=== PATIENT | female | born 1980 | race Caucasian/White ===

== ENCOUNTER 2023-03-12 20:39 | Inpatient (IN) | payer OTHER ==
--- NOTE | 2023-03-12 21:31 | ED ---
Psych HPI - General Source: EMS, RN notes reviewed, old records reviewed Mode of arrival: EMS Limitations: no limitations - History of Present Illness MD Complaint: altered mental status -: unknown Associated Psychiatric Symptoms: racing thoughts, visual hallucinations, delusions Quality: constant, getting worse Improves With: none Worsens With: none Associated Symptoms: denies other symptoms <Salty Mcdermott - Last Filed: 03/12/23 23:20> <Cain Saenz - Last Filed: 03/13/23 02:30> - General Chief Complaint: Psychiatric Symptoms Stated Complaint: Mental Health Time Seen by Provider: 03/12/23 21:07 - History of Present Illness Initial Comments: This is a 42-year-old female to the ER today for evaluation of altered mental status. Patient is not acting appropriately per family states she's been sleeping in bed for 2-3 days and was altered on evaluation today. Patient has relatively no complaints is a poor strain is a patient here in the emergency department (Salty Mcdermott) - Related Data Home Medications Medication Instructions Recorded Confirmed Dextromethorphan HBr/Bupropion 1 tab PO BID 03/12/23 03/12/23 [Auvelity ER 45-105 mg Tablet] hydrOXYzine pamoate [Vistaril] 50 mg PO HS 03/12/23 03/12/23 Allergies Allergy/AdvReac Type Severity Reaction Status Date / Time No Known Allergies Allergy Unverified 03/12/23 22:46 Review of Systems ROS Other: All systems not noted in ROS Statement are negative. <Salty Mcdermott - Last Filed: 03/12/23 23:20> ROS Other: All systems not noted in ROS Statement are negative. <Cain Saenz - Last Filed: 03/13/23 02:30> ROS Statement: Those systems with pertinent positive or pertinent negative responses have been documented in the HPI. Past Medical History Past Medical History: Cancer Smoking Status: Unknown if ever smoked Past Alcohol Use History: Unable to Obtain Past Drug Use History: Unable to Obtain <Salty Mcdermott - Last Filed: 03/12/23 23:20> General Exam General appearance: alert, in no apparent distress Head exam: Present: atraumatic, normocephalic, normal inspection Eye exam: Present: normal appearance, PERRL, EOMI. Absent: scleral icterus, conjunctival injection, periorbital swelling ENT exam: Present: normal exam, mucous membranes moist Neck exam: Present: normal inspection. Absent: tenderness, meningismus, lymphadenopathy Respiratory exam: Present: normal lung sounds bilaterally. Absent: respiratory distress, wheezes, rales, rhonchi, stridor Cardiovascular Exam: Present: regular rate, normal rhythm, normal heart sounds. Absent: systolic murmur, diastolic murmur, rubs, gallop, clicks GI/Abdominal exam: Present: soft, normal bowel sounds. Absent: distended, tenderness, guarding, rebound, rigid Extremities exam: Present: normal inspection, full ROM, normal capillary refill. Absent: tenderness, pedal edema, joint swelling, calf tenderness Back exam: Present: normal inspection Neurological exam: Present: alert, oriented X3, CN II-XII intact Psychiatric exam: Present: normal affect, normal mood Skin exam: Present: warm, dry, intact, normal color. Absent: rash <Salty Mcdermott - Last Filed: 03/12/23 23:20> Course <Salty Mcdermott - Last Filed: 03/12/23 23:20> Vital Signs 03/12/23 03/12/23 03/13/23 20:44 22:10 01:00 Temperature 99.5 F Pulse Rate 115 H 110 H 91 Respiratory 18 16 Rate Blood Pressure 129/107 121/91 110/80 O2 Sat by Pulse 96 97 98 Oximetry - Reevaluation(s) Reevaluation #1: 03/12/23 23:19 Record is reviewed (Salty Mcdermott) Reevaluation #4: 03/12/23 23:20 Was pt. sent in by a medical professional or institution (, PA, CIVIL RIGHTS ATTORNEY, urgent care, hospital, or longterm...) When possible be specific @ -no Did you speak to anyone other than the patient for history (EMS, parent, family, police, friend...)? What history was obtained from this source @ -no Did you review nursing and triage notes (agree or disagree)? Why? @ -agree Are old charts reviewed (outside hosp., previous admission, EMS record, old EKG, old radiological studies, urgent care reports/EKG's, longterm records)? Report findings @ -yes Differential Diagnosis (chest pain, altered mental status, abdominal pain women, abdominal pain men, vaginal bleeding, weakness, fever, dyspnea, syncope, headache, dizziness, GI bleed, back pain, seizure, CVA, palpatations, mental health, musculoskeletal)? @ -prior EKG interpreted by me (3pts min.). @ -yes X-rays interpreted by me (1pt min.). @ -yes CT interpreted by me (1pt min.). @ -no U/S interpreted by me (1pt. min.). @ -no What testing was considered but not performed or refused? (CT, X-rays, U/S, labs)? Why? @ -none What meds were considered but not given or refused? Why? @ -none Did you discuss the management of the patient with other professionals (professionals i.e. , PA, CIVIL RIGHTS ATTORNEY, lab, RT, psych nurse, medical social worker, reel system operator, teacher, air support control officer, embedded case manager)? Give summary @ -no Was smoking cessation discussed for >3mins.? @ -no Was critical care preformed (if so, how long)? @ -no Were there social determinants of health that impacted care today? How? (Homelessness, low income, unemployed, alcoholism, drug addiction, transportation, low edu. Level, literacy, decrease access to med. care, usp, rehab)? @ -none Was there de-escalation of care discussed even if they declined (Discuss DNR or withdrawal of care, Hospice)? DNR status @ -no What co-morbidities impacted this encounter? (DM, HTN, Smoking, COPD, CAD, Cancer, CVA, ARF, Chemo, Hep., AIDS, mental health diagnosis, sleep apnea, morbid obesity)? @ -none Was patient admitted / discharged? Hospital course, mention meds given and route, prescriptions, significant lab abnormalities, going to OR and other pertinent info. @ - Undiagnosed new problem with uncertain prognosis? @ -no Drug Therapy requiring intensive monitoring for toxicity (Heparin, Nitro, Insulin, Cardizem)? @ -no Were any procedures done? @ -no Diagnosis/symptom? @ - Acute, or Chronic, or Acute on Chronic? @ -Acute Uncomplicated (without systemic symptoms) or Complicated (systemic symptoms)? @ -Complicated Side effects of treatment? @ -no Exacerbation, Progression, or Severe Exacerbation? @ -exacerbation Poses a threat to life or bodily function? How? (Chest pain, [place], [place], pneumonia, PE, COPD, DKA, ARF, appy, cholecystitis, CVA, Diverticulitis, Homicidal, Suicidal, threat to staff... and all critical care pts) @ -yes (Salty Mcdermott) Reevaluation #5: 03/12/23 23:20 Differential Altered Mental Status: Hypoglycemia, DKA, hypercapnia, ETOH, overdose, CO poisoning, trauma, myxedema coma, HTN encephalopathy, infection, encephalitis, psychosis, intercranial hemorrhage, hepatic encephalopathy, meningitis, CVA, this is not meant to be an all-inclusive list (Salty Mcdermott) Medical Decision Making - Lab Data Result diagrams: 03/12/23 22:52 03/12/23 22:52 - EKG Data -: EKG Interpreted by Me <Cain Saenz - Last Filed: 03/13/23 02:30> - Medical Decision Making Patient signed out to me pending results of workup. Presents with family over concern for altered mental status, lack of appetite, concern for dehydration. Has a psychiatric history and unknown if it is related to meds. No recent changes but that in some of the last few months that have been adjusted. Seems confused as well. Denies any fevers. No other acute complaints at this time. Patient's laboratory studies returned remarkable for findings of dehydration as well as AKA with BUN of 32 and creatinine 2.27. Lactic acid within normal limits following 2 fluid boluses. Patient is not . Urinalysis is contaminated. UDS positive for amphetamines, benzos. Remainder the workup relatively unremarkable. CT brain as well as CT of the chest abdomen pelvis is interpreted by myself reveals no obvious acute process. Vital signs remained within acceptable limits. I updated family as well as patient. They were in agreement the plan for admission. We'll continue with IV fluids. I spoke with the admitting team, [facility]ANE[facility] Nev[facility] accepted the admission. Neurology consulted. Diagnosis/symptom? @ -Altered mental status, dehydration, AKA, polysubstance abuse Acute, or Chronic, or Acute on Chronic? @ -Acute Uncomplicated (without systemic symptoms) or Complicated (systemic symptoms)? @ -Complicated Side effects of treatment? @ -none Exacerbation, Progression, or Severe Exacerbation] @ -no Poses a threat to life or bodily function? @ -Potentially, yes (Cain Saenz) - Lab Data Lab Results 03/12/23 03/12/23 03/12/23 Range/Units 22:52 22:52 22:52 WBC 12.7 H (3.8-10.6) k/uL RBC 5.61 H (3.80-5.40) m/uL Hgb 17.2 H (11.4-16.0) gm/dL Hct 50.8 H (34.0-46.0) % MCV 90.5 (80.0-100.0) fL MCH 30.7 (25.0-35.0) pg MCHC 33.9 (31.0-37.0) g/dL RDW 12.5 (11.5-15.5) % Plt Count 272 (150-450) k/uL MPV 7.4 Neutrophils % 76 % Lymphocytes % 15 % Monocytes % 7 % Eosinophils % 1 % Basophils % 1 % Neutrophils # 9.6 H (1.3-7.7) k/uL Lymphocytes # 1.9 (1.0-4.8) k/uL Monocytes # 0.8 (0-1.0) k/uL Eosinophils # 0.1 (0-0.7) k/uL Basophils # 0.1 (0-0.2) k/uL PT 11.9 (10.0-12.5) sec INR 1.1 (<1.2) APTT 23.7 (22.0-30.0) sec Sodium 143 (137-145) mmol/L Potassium 4.4 (3.5-5.1) mmol/L Chloride 107 (98-107) mmol/L Carbon Dioxide 15 L (22-30) mmol/L Anion Gap 21 mmol/L BUN 32 H (7-17) mg/dL Creatinine 2.27 H (0.52-1.04) mg/dL Est GFR (CKD-EPI)AfAm 29 (>60 ml/min/1.73 sqM) Est GFR (CKD-EPI)NonAf 26 (>60 ml/min/1.73 sqM) Glucose 120 H (74-99) mg/dL Plasma Lactic Acid Tunde (0.7-2.0) mmol/L Calcium 11.3 H (8.4-10.2) mg/dL Total Bilirubin 1.0 (0.2-1.3) mg/dL AST 30 (14-36) U/L ALT 19 (4-34) U/L Alkaline Phosphatase 119 (38-126) U/L Ammonia (<30) umol/L Total Protein 8.9 H (6.3-8.2) g/dL Albumin 5.4 H (3.5-5.0) g/dL Lipase 61 (23-300) U/L HCG, Qual Urine Color Urine Appearance (Clear) Urine pH (5.0-8.0) Ur Specific Vantage (1.001-1.035) Urine Protein (Negative) Urine Glucose (UA) (Negative) Urine Ketones (Negative) Urine Blood (Negative) Urine Nitrite (Negative) Urine Bilirubin (Negative) Urine Urobilinogen (<2.0) mg/dL Ur Leukocyte Esterase (Negative) Urine RBC (0-5) /hpf Urine WBC (0-5) /hpf Ur Squamous Epith Cells (0-4) /hpf Urine Bacteria (None) /hpf Urine Mucus (None) /hpf Salicylates <1.0 mg/dL Urine Opiates Screen (NotDetected) Ur Oxycodone Screen (NotDetected) Urine Methadone Screen (NotDetected) Acetaminophen <10.0 ug/mL Ur Barbiturates Screen (NotDetected) Phenytoin <3.0 ug/mL Valproic Acid <10.0 ug/mL Carbamazepine <3.0 ug/mL U Tricyclic Antidepress (NotDetected) Ur Phencyclidine Scrn (NotDetected) Ur Amphetamines Screen (NotDetected) U Methamphetamines Scrn (NotDetected) U Benzodiazepines Scrn (NotDetected) Urine Cocaine Screen (NotDetected) U Marijuana (THC) Screen (NotDetected) Serum Alcohol <10 mg/dL Influenza Type A (PCR) (Not Detectd) Influenza Type B (PCR) (Not Detectd) RSV (PCR) (Not Detectd) SARS-CoV-2 (PCR) (Not Detectd) 03/12/23 03/13/23 03/13/23 Range/Units 22:52 01:09 01:09 WBC (3.8-10.6) k/uL RBC (3.80-5.40) m/uL Hgb (11.4-16.0) gm/dL Hct (34.0-46.0) % MCV (80.0-100.0) fL MCH (25.0-35.0) pg MCHC (31.0-37.0) g/dL RDW (11.5-15.5) % Plt Count (150-450) k/uL MPV Neutrophils % % Lymphocytes % % Monocytes % % Eosinophils % % Basophils % % Neutrophils # (1.3-7.7) k/uL Lymphocytes # (1.0-4.8) k/uL Monocytes # (0-1.0) k/uL Eosinophils # (0-0.7) k/uL Basophils # (0-0.2) k/uL PT (10.0-12.5) sec INR (<1.2) APTT (22.0-30.0) sec Sodium (137-145) mmol/L Potassium (3.5-5.1) mmol/L Chloride (98-107) mmol/L Carbon Dioxide (22-30) mmol/L Anion Gap mmol/L BUN (7-17) mg/dL Creatinine (0.52-1.04) mg/dL Est GFR (CKD-EPI)AfAm (>60 ml/min/1.73 sqM) Est GFR (CKD-EPI)NonAf (>60 ml/min/1.73 sqM) Glucose (74-99) mg/dL Plasma Lactic Acid Tunde 1.1 (0.7-2.0) mmol/L Calcium (8.4-10.2) mg/dL Total Bilirubin (0.2-1.3) mg/dL AST (14-36) U/L ALT (4-34) U/L Alkaline Phosphatase (38-126) U/L Ammonia 9 (<30) umol/L Total Protein (6.3-8.2) g/dL Albumin (3.5-5.0) g/dL Lipase (23-300) U/L HCG, Qual Urine Color Urine Appearance (Clear) Urine pH (5.0-8.0) Ur Specific Vantage (1.001-1.035) Urine Protein (Negative) Urine Glucose (UA) (Negative) Urine Ketones (Negative) Urine Blood (Negative) Urine Nitrite (Negative) Urine Bilirubin (Negative) Urine Urobilinogen (<2.0) mg/dL Ur Leukocyte Esterase (Negative) Urine RBC (0-5) /hpf Urine WBC (0-5) /hpf Ur Squamous Epith Cells (0-4) /hpf Urine Bacteria (None) /hpf Urine Mucus (None) /hpf Salicylates mg/dL Urine Opiates Screen (NotDetected) Ur Oxycodone Screen (NotDetected) Urine Methadone Screen (NotDetected) Acetaminophen ug/mL Ur Barbiturates Screen (NotDetected) Phenytoin ug/mL Valproic Acid ug/mL Carbamazepine ug/mL U Tricyclic Antidepress (NotDetected) Ur Phencyclidine Scrn (NotDetected) Ur Amphetamines Screen (NotDetected) U Methamphetamines Scrn (NotDetected) U Benzodiazepines Scrn (NotDetected) Urine Cocaine Screen (NotDetected) U Marijuana (THC) Screen (NotDetected) Serum Alcohol mg/dL Influenza Type A (PCR) Not Detected (Not Detectd) Influenza Type B (PCR) Not Detected (Not Detectd) RSV (PCR) Not Detected (Not Detectd) SARS-CoV-2 (PCR) Not Detected (Not Detectd) 03/13/23 03/13/23 03/13/23 Range/Units 01:36 01:36 01:36 WBC (3.8-10.6) k/uL RBC (3.80-5.40) m/uL Hgb (11.4-16.0) gm/dL Hct (34.0-46.0) % MCV (80.0-100.0) fL MCH (25.0-35.0) pg MCHC (31.0-37.0) g/dL RDW (11.5-15.5) % Plt Count (150-450) k/uL MPV Neutrophils % % Lymphocytes % % Monocytes % % Eosinophils % % Basophils % % Neutrophils # (1.3-7.7) k/uL Lymphocytes # (1.0-4.8) k/uL Monocytes # (0-1.0) k/uL Eosinophils # (0-0.7) k/uL Basophils # (0-0.2) k/uL PT (10.0-12.5) sec INR (<1.2) APTT (22.0-30.0) sec Sodium (137-145) mmol/L Potassium (3.5-5.1) mmol/L Chloride (98-107) mmol/L Carbon Dioxide (22-30) mmol/L Anion Gap mmol/L BUN (7-17) mg/dL Creatinine (0.52-1.04) mg/dL Est GFR (CKD-EPI)AfAm (>60 ml/min/1.73 sqM) Est GFR (CKD-EPI)NonAf (>60 ml/min/1.73 sqM) Glucose (74-99) mg/dL Plasma Lactic Acid Tunde (0.7-2.0) mmol/L Calcium (8.4-10.2) mg/dL Total Bilirubin (0.2-1.3) mg/dL AST (14-36) U/L ALT (4-34) U/L Alkaline Phosphatase (38-126) U/L Ammonia (<30) umol/L Total Protein (6.3-8.2) g/dL Albumin (3.5-5.0) g/dL Lipase (23-300) U/L HCG, Qual Not Detected Urine Color Yellow Urine Appearance Cloudy H (Clear) Urine pH 5.5 (5.0-8.0) Ur Specific Vantage >1.050 H (1.001-1.035) Urine Protein 1+ H (Negative) Urine Glucose (UA) Negative (Negative) Urine Ketones Negative (Negative) Urine Blood Trace H (Negative) Urine Nitrite Negative (Negative) Urine Bilirubin 1+ H (Negative) Urine Urobilinogen 2.0 (<2.0) mg/dL Ur Leukocyte Esterase Large H (Negative) Urine RBC 38 H (0-5) /hpf Urine WBC 50 H (0-5) /hpf Ur Squamous Epith Cells 28 H (0-4) /hpf Urine Bacteria Occasional H (None) /hpf Urine Mucus Many H (None) /hpf Salicylates mg/dL Urine Opiates Screen Not Detected (NotDetected) Ur Oxycodone Screen Not Detected (NotDetected) Urine Methadone Screen Not Detected (NotDetected) Acetaminophen ug/mL Ur Barbiturates Screen Not Detected (NotDetected) Phenytoin ug/mL Valproic Acid ug/mL Carbamazepine ug/mL U Tricyclic Antidepress Not Detected (NotDetected) Ur Phencyclidine Scrn Not Detected (NotDetected) Ur Amphetamines Screen Detected H (NotDetected) U Methamphetamines Scrn Detected H (NotDetected) U Benzodiazepines Scrn Detected H (NotDetected) Urine Cocaine Screen Not Detected (NotDetected) U Marijuana (THC) Screen Not Detected (NotDetected) Serum Alcohol mg/dL Influenza Type A (PCR) (Not Detectd) Influenza Type B (PCR) (Not Detectd) RSV (PCR) (Not Detectd) SARS-CoV-2 (PCR) (Not Detectd) - EKG Data EKG Comments: 12-lead Electrocardiogram Interpretation Note EKG was reviewed and interpreted by myself. 12-lead ECG performed at 0118 is interpreted by me as revealing normal sinus rhythm at a rate of 90 beats per minute. Leota is normal. AL interval is 176 ms, QRS duration is 63 ms, QTc is 420 ms.. There were no ST or T wave abnormalities to suggest myocardial ischemia or injury. R wave progression across the precordium was satisfactory. By my interpretation this EKG is non-diagnostic for acute ischemia. (Cain Saenz) Disposition <Salty Mcdermott - Last Filed: 03/12/23 23:20> Time of Disposition: 01:55 <Cain Saenz - Last Filed: 03/13/23 02:30> Clinical Impression: AMS (altered mental status), NICHELLE (acute kidney injury), Dehydration, Polysubstance abuse Disposition: ADMITTED IP TO THIS HOSP Condition: Stable Referrals: Jaylen Felder MD [Primary Care Provider] - 1-2 days
[2023-03-12] MEDS ORDERED: SODIUM CHLORIDE 0.9% 500 ML 500 ML IV ONE (22:38)
[2023-03-12] MEDS ORDERED: SODIUM CHLORIDE 0.9% 1,000 ML IV ONE (22:38)
[2023-03-12] MEDS ORDERED: SODIUM CHLORIDE 0.9% 1,000 ML IV STA (22:38)
[2023-03-12] MEDS ORDERED: LORazepam 2 MG/ML INJ IV STA (22:40)
[2023-03-12] MEDS ORDERED: ACETAMINOPHEN IV (For NPO) 1,000 MG in EMPTY BAG 1 BAG IVPB STA (22:40)
[2023-03-12] MEDS ORDERED: KETOROLAC 15 MG/ML 1 ML VIAL IVP STA (22:40)
[2023-03-12 23:33] LABS: Basophils # (A) 0.1 k/uL (0-0.2); Basophils % (A) 1 %; Eosinophils # (A) 0.1 k/uL (0-0.7); Eosinophils % (A) 1 %; HCT 50.8 % (34.0-46.0); HGB 17.2 gm/dL (11.4-16.0); Lymphocytes # (A) 1.9 k/uL (1.0-4.8); Lymphocytes % (A) 15 %; MCH 30.7 pg (25.0-35.0); MCHC 33.9 g/dL (31.0-37.0); MCV 90.5 fL (80.0-100.0); Mean Platelet Volume 7.4; Monocytes # (A) 0.8 k/uL (0-1.0); Monocytes % (A) 7 %; Neutrophils # (A) 9.6 k/uL (1.3-7.7); Neutrophils % (A) 76 %; Platelet Count 272 k/uL (150-450); RBC 5.61 m/uL (3.80-5.40); RDW 12.5 % (11.5-15.5); WBC 12.7 k/uL (3.8-10.6)
[2023-03-12 23:41] LABS: INR 1.1 (<1.2); Partial Thromboplastin Time 23.7 sec (22.0-30.0); Prothrombin Time 11.9 sec (10.0-12.5)
[2023-03-12 23:47] LABS: ALT 19 U/L (4-34); AST 30 U/L (14-36); Acetaminophen <10.0 ug/mL; African American GFR (CKD) 29 (>60 ml/min/1.73 sqM); Albumin 5.4 g/dL (3.5-5.0); Alcohol <10 mg/dL; Alkaline Phosphatase 119 U/L (38-126); Anion Gap 21 mmol/L; Blood Urea Nitrogen 32 mg/dL (7-17); Calcium 11.3 mg/dL (8.4-10.2); Carbamazepine (Tegretol) <3.0 ug/mL; Carbon Dioxide 15 mmol/L (22-30); Chloride 107 mmol/L (98-107); Glucose 120 mg/dL (74-99); Lipase 61 U/L (23-300); Non-African American GFR(CKD) 26 (>60 ml/min/1.73 sqM); Phenytoin (Dilantin) <3.0 ug/mL; Potassium 4.4 mmol/L (3.5-5.1); Salicylate <1.0 mg/dL; Sodium 143 mmol/L (137-145); Total Protein 8.9 g/dL (6.3-8.2)
[2023-03-12 23:50] LABS: Valproic Acid (Depakene) <10.0 ug/mL
--- NOTE | 2023-03-13 00:22 | CT ---
EXAMINATION TYPE: CT brain wo con DATE OF EXAM: 03/13/2023 COMPARISON: None HISTORY: pt presents with withdrawn affect. mother reported to EMS that pt has not eaten or drank x2d ays and is not taking psych meds. pt has had diarrhea x2days and is diaphoretic. CT DLP: 1156.7 mGycm. Automated Exposure Control for Dose Reduction was Utilized. TECHNIQUE: CT scan of the head is performed without contrast. FINDINGS: There is no acute intracranial hemorrhage, mass effect, or midline shift identified. The ventricles and sulci are within normal limits in size. Baker-white matter differentiation is maintain ed. The calvarium is intact. The globes are intact and the visualized sinuses are clear. IMPRESSION: No acute intracranial hemorrhage, mass effect, or midline shift is seen.
--- NOTE | 2023-03-13 00:38 | CT ---
EXAMINATION TYPE: CT ChestAbdPelvis w con DATE OF EXAM: 03/13/2023 COMPARISON: None. HISTORY: pt presents with withdrawn affect. mother reported to EMS that pt has not eaten or drank x2d ays and is not taking psych meds. pt has had diarrhea x2days and is diaphoretic. CT DLP: 2710.5 mGycm. Automated Exposure Control for Dose Reduction was Utilized. CONTRAST: CT scan of the thorax, abdomen and pelvis is performed with IV Contrast, patient injected with 100 mL of Isovue 300. FINDINGS: LUNGS: The lungs are grossly clear, there is no concerning parenchymal mass or nodule identified. T here is no pleural effusion or pneumothorax seen. The tracheobronchial tree is patent. MEDIASTINUM: There are no greater than 1 cm hilar or mediastinal lymph nodes. No cardiomegaly. Tiny p ericardial effusion is seen. There is four vessel origin from the aortic arch which is normal varian t. LIVER/GB: Cholecystectomy clips are seen. PANCREAS: No significant abnormality is seen. SPLEEN: No significant abnormality is seen. ADRENALS: No significant abnormality is seen. KIDNEYS: No significant abnormality is seen. BOWEL: Low-lying cecum into the right pelvis. No suspicious small or large bowel dilatation. GENITAL ORGANS: Uterus is surgically absent or markedly atrophic. LYMPH NODES: No greater than 1cm abdominal or pelvic lymph nodes are appreciated. OSSEOUS STRUCTURES: Multilevel spurring in the thoracolumbar spine.. OTHER: No significant additional abnormality is seen. IMPRESSION: No bowel obstruction. No acute findings are evident.
[2023-03-13 01:53] LABS: Amphetamine Screen,Urine Detected (NotDetected); Barbiturate Screen,Urine Not Detected (NotDetected); Benzodiazepines Screen,Urine Detected (NotDetected); Cocaine Screen,Urine Not Detected (NotDetected); Methadone Screen, Urine Not Detected (NotDetected); Opiate Screen,Urine Not Detected (NotDetected); Oxycodone Screen, Urine Not Detected (NotDetected); Phencyclidine Screen,Urine Not Detected (NotDetected); Tricyclic Antidepressant,Urine Not Detected (NotDetected); Urn Cannabinoid Scrn Not Detected (NotDetected)
[2023-03-13 01:57] LABS: Appearance,Urine Cloudy (Clear); Bacteria,Urine Occasional /hpf; Bilirubin,Urine 1+ (Negative); Blood,Urine Trace (Negative); Color,Urine Yellow; Glucose,Urine (UA) Negative (Negative); Ketones,Urine Negative (Negative); Leukocyte Esterase,Urine Large (Negative); Mucus,Urine Many /hpf; Nitrite,Urine Negative (Negative); PH, Urine 5.5 (5.0-8.0); Protein,Urine 1+ (Negative); RBC,Urine 38 /hpf (0-5); Squamous Epithelial Cell,Urine 28 /hpf (0-4); WBC,Urine 50 /hpf (0-5)
[2023-03-13 01:58] LABS: Specific Gravity,Urine >1.050 (1.001-1.035)
[2023-03-13] MEDS ORDERED: ACETAMINOPHEN TAB 325 MG TAB PO PRN (02:02)
[2023-03-13] MEDS ORDERED: NALOXONE 0.4 MG/ML 1 ML VIAL IV PRN (02:02)
[2023-03-13] MEDS ORDERED: ONDANSETRON 4 MG/2 ML VIAL IVP PRN (08:42)
[2023-03-13] MEDS ORDERED: traMADol 50 MG TAB PO PRN (08:42)
[2023-03-13] MEDS ORDERED: MAG HYDROX/AL HYDROX/SIMETH 30 ML CUP PO PRN (08:42)
[2023-03-13 09:29] LABS: Basophils # (A) 0.1 k/uL (0-0.2); Basophils % (A) 1 %; Eosinophils # (A) 0.1 k/uL (0-0.7); Eosinophils % (A) 1 %; HCT 44.9 % (34.0-46.0); HGB 14.8 gm/dL (11.4-16.0); Lymphocytes % (A) 25 %; MCH 30.5 pg (25.0-35.0); MCHC 32.9 g/dL (31.0-37.0); MCV 92.5 fL (80.0-100.0); Mean Platelet Volume 7.6; Monocytes # (A) 0.6 k/uL (0-1.0); Monocytes % (A) 8 %; Neutrophils % (A) 62 %; Platelet Count 227 k/uL (150-450); RBC 4.86 m/uL (3.80-5.40); RDW 12.5 % (11.5-15.5)
[2023-03-13] MEDS: SODIUM CHLORIDE 0.9% 1,000 ML IV SCH ×2 (09:34→18:30)
[2023-03-13 09:45] LABS: African American GFR (CKD) 35 (>60 ml/min/1.73 sqM); Anion Gap 13 mmol/L; Blood Urea Nitrogen 40 mg/dL (7-17); Calcium 10.1 mg/dL (8.4-10.2); Carbon Dioxide 21 mmol/L (22-30); Chloride 110 mmol/L (98-107); Glucose 109 mg/dL (74-99); Non-African American GFR(CKD) 30 (>60 ml/min/1.73 sqM); Potassium 4.1 mmol/L (3.5-5.1); Sodium 144 mmol/L (137-145)
--- NOTE | 2023-03-13 13:07 | P.CNNES ---
History of Present Illness Consult date: 03/13/23 Requesting physician: Cain Saenz Reason for Consult: AMS History of Present Illness: Patient is a 42-year-old female came to the hospital by ambulance yesterday at 8:39 PM for altered mental status. Patient not able to provide any history. Patient not cooperating with the history or examination, likely due to u nderlying psychiatric issue. Please refer to examination below. As per EMS flow sheet, it appears patient has mental health issues. Patient returned to her parent's home 2 days ago and upon arrival home, patient has become reclusive, refuses to eat or drink, refuses medications, refuses to leave her except to use restroom and will not shower. Today patient would not answer the home phone or cell phone when her mother was calling to check on her. Patient and mother left work early to check on the patient and patient does not respond when spoken to. Mother tried to get patient to take a shower and she would not move from her bedroom. Patient then went to her restroom and mother states that patient was "breathing fast and holding her chest". Patient had 2 bouts of diarrhea and was coming out of the restroom upon EMS arrival. Patient appeared to be diaphoretic however is no longer holding her chest or complaining of any chest discomfort. Patient agreed to go to the hospital and had allowed EMS to assist her with her coat and shoes. EKG reveals sinus tachycardia. Patient denied any chest pressure, discomfort or chest pain. Patient denied any abdominal pain or feeling of return of diarrhea. Patient's heart rate increases as well as BP with communication or rough roads or snow being thrown against the ambulance causing a loud noise. Patient can be calmed and then starts whimpering again. Patient mentioned that she is anxious and afraid. Patient's vitals at the scene was blood pressure 147/87% 103, respiration 22 saturation 95%. Blood sugar 157. CT head revealed no acute intracranial hemorrhage mass effect or midline shift. I personally reviewed CT head, agree with the findings. EKG shows sinus rhythm. CT of the abdomen and pelvis shows no bowel obstruction. No acute findings. Patient's blood test shows elevated WBC, but not back to normal 8.0. Platelets are normal. PT/PTT normal. BUN is 32, creatinine 2.27. Repeat renal functions have improved, with BUN 40, creatinine 1.96. GFR is improved. Hepatic panel is normal. UA shows large amount of leukocyte esterase, 50 WBC, 38 RBC. Urine drug screen positive for amphetamines, methamphetamines and benzodiazepine. Looks like patient is prescribed amphetamines. Blood alcohol level negative. Influenza, RSV and coronal virus PCR negative. Patient at home takes dextromethorphan/bupropion, hydroxyzine. It is uncertain if positive amphetamine and methamphetamine is related to false positive test related to use of dextromethorphan/bupropion. Review of Systems Patient did say "no, not now" for headache. ROS unobtainable: due to mental status Past Medical History Past Medical History: Cancer Smoking Status: Unknown if ever smoked Past Alcohol Use History: Unable to Obtain Past Drug Use History: Unable to Obtain Medications and Allergies Home Medications Medication Instructions Recorded Confirmed Type Dextromethorphan HBr/Bupropion 1 tab PO BID 03/12/23 03/12/23 History [Auvelity ER 45-105 mg Tablet] hydrOXYzine pamoate [Vistaril] 50 mg PO HS 03/12/23 03/12/23 History Allergies Allergy/AdvReac Type Severity Reaction Status Date / Time No Known Allergies Allergy Unverified 03/12/23 22:46 Physical Examination - Vital Signs Vital Signs: Vital Signs Temp Pulse Resp BP Pulse Ox 03/13/23 09:33 98.6 F 79 17 101/79 95 03/13/23 08:15 73 17 95 03/13/23 05:29 77 18 105/81 98 03/13/23 01:00 98.8 F 91 16 110/80 98 03/12/23 22:10 110 H 121/91 97 03/12/23 20:44 99.5 F 115 H 18 129/107 96 Intake and Output 03/12/23 03/13/23 03/13/23 22:59 06:59 14:59 Other: Weight 140.614 kg Patient is a middle aged female, who is in no acute distress. Patient is alert awake, but does not want to communicate, does not voluntarily want to cooperate with examination except intermittently as below. Patient appears very anxious. Patient would not name any objects presented. On asking question, patient would swallow and appears slightly uncomfortable. Very limited speech appeared normal. Like on asking about headache, patient said "not now headache". No obvious aphasia or dysarthria based upon her limited speech. Attention, concentration is impaired and fund of knowledge is difficult to assess. On cranial nerve examination, pupils are equal, round and reacting to light, visual musa are full on confrontation, with no neglect on double simultaneous stimulation. Patient would move her index finger ipsilateral to the visual field being tested and was very appropriate and quick response. Extraocular muscles are intact with no nystagmus. Face is symmetric, tongue protrudes to the midline. Palatal elevation and sensation normal, hearing appears normal, although did not cooperate. Her shoulder shrug normal, facial sensation normal. On muscle strength testing, patient would not cooperate for the testing. When asked to check for director motion picture, patient would remove my fingers from her palm. She moves her arms very equally. Patient did not cooperate with muscle strength testing. In the lower limbs, patient was cooperative enough and able to lift her legs off the bed 30 and give resistance equally with no obvious focality. Deep tendon reflexes are symmetric 2+ in the arms and legs and plantars are flat. Sensory to touch could not be assessed as patient would not cooperate. Cerebellar function patient did not cooperate. She has severe anhedonia and lack of initiative. On asking for checking [id number] testing, patient would slightly elevate her index finger, would have no energy to lift her arm to check for [id number]. Patient did not cooperate for lower extremity testing. Even checking for tone, patient appeared disliking or uncomfortable for checking for the tone. It appeared normal to minimally increased. Bulk of muscles normal. Gait deferred.. On general examination, there is no carotid bruit or murmur, S1-S2 audible. Chest is clear on consultation. Abdomen is soft nontender. No organomegaly, bowel sounds present. Peripheral pulses are present. No peripheral edema. Results - Laboratory Findings CBC and BMP: 03/13/23 09:07 03/13/23 09:07 Abnormal Lab Findings: Abnormal Labs 03/12/23 03/12/23 03/13/23 22:52 22:52 01:36 WBC 12.7 H RBC 5.61 H Hgb 17.2 H Hct 50.8 H Neutrophils # 9.6 H Carbon Dioxide 15 L BUN 32 H Creatinine 2.27 H Glucose 120 H Calcium 11.3 H Total Protein 8.9 H Albumin 5.4 H Urine Appearance Ur Specific [place] Urine Protein Urine Blood Urine Bilirubin Ur Leukocyte Esterase Urine RBC Urine WBC Ur Squamous Epith Cells Urine Bacteria Urine Mucus Ur Amphetamines Screen Detected H U Methamphetamines Scrn Detected H U Benzodiazepines Scrn Detected H 03/13/23 01:36 WBC RBC Hgb Hct Neutrophils # Carbon Dioxide BUN Creatinine Glucose Calcium Total Protein Albumin Urine Appearance Cloudy H Ur Specific [place] >1.050 H Urine Protein 1+ H Urine Blood Trace H Urine Bilirubin 1+ H Ur Leukocyte Esterase Large H Urine RBC 38 H Urine WBC 50 H Ur Squamous Epith Cells 28 H Urine Bacteria Occasional H Urine Mucus Many H Ur Amphetamines Screen U Methamphetamines Scrn U Benzodiazepines Scrn Assessment and Plan Assessment: * Altered mental status, likely due to acute psychosis. Rule out toxic metabolic encephalopathy related to below. * Positive urine drug screen for amphetamines, methamphetamines, uncertain if false-positive related to use of dextromethorphan/bupropion. * Possible UTI * Acute kidney injury Plan: * Recommend psychiatry consultation for acute psychosis. * EEG evaluate for encephalopathy * B12, folate, YURIDIA, TSH, RPR * Nephrology consultation for acute kidney injury. * Patient on ceftriaxone for acute UTI. * Neurology will follow. Thank you for the consultation.
[2023-03-13] MEDS ORDERED: DEXTROMETHORPHAN PO SCH (14:45)
[2023-03-13] MEDS ORDERED: BUPROPION PO SCH (14:45)
--- NOTE | 2023-03-13 14:47 | P.HPIM ---
History of Present Illness H&P Date: 03/13/23 Chief Complaint: Altered mental status * 42-year-old patient with past medical history significant for mood disorder presents to the emergency department with complaints of delusions, visual hallucination and racing thoughts. Patient was contacted appropriately per family and no spotting. Patient was noted to be excessively lethargic. Workup initiated in ER included CBC which were WBC of 12.7 hemoglobin 17.2 platelet count of 272. Serum chemistry shows sodium 143 potassium 4.4 carbon dioxide 15 BU and 22 creatinine 2.27 lactic acid of 1.1 lipase of 61 * Urinalysis obtained showed large amount of leukocyte esterase WBC and urine high squamous epithelial cells were noted * Urine drug seen obtained was positive for amphetamine, methamphetamine and benzodiazepine * Patient tested negative for influenza, RSV and Covid * CT head obtained negative for intracranial process * CT abdomen pelvis noted to be negative for intra-abdominal process * Patient was given IV fluid 2 L in ED and started on maintenance hydration. Follow-up urinalysis as well as serum chemistry obtained * History obtained from chart review secondary to patient being alert however the best historian REVIEW OF SYSTEMS: CONSTITUTIONAL: Altered mentation, delusion, hallucination PHYSICAL EXAMINATION: GENERAL: The patient is alert and oriented x 0 , ill appearance HEENT: Pupils are round and equally reacting to light. EOMI. CARDIOVASCULAR: S1 and S2 present. No murmurs, rubs, or gallops. PULMONARY: Chest is clear to auscultation, no wheezing or crackles. ABDOMEN: Soft, nontender, nondistended, normoactive bowel sounds. No palpable organomegaly. MUSCULOSKELETAL: No joint swelling or deformity. EXTREMITIES: No cyanosis, clubbing, or pedal edema. NEUROLOGICAL: Appears disoriented Past Medical History Past Medical History: Cancer Smoking Status: Unknown if ever smoked Past Alcohol Use History: Unable to Obtain Past Drug Use History: Unable to Obtain Medications and Allergies Home Medications Medication Instructions Recorded Confirmed Type Dextromethorphan HBr/Bupropion 1 tab PO BID 03/12/23 03/12/23 History [Auvelity ER 45-105 mg Tablet] hydrOXYzine pamoate [Vistaril] 50 mg PO HS 03/12/23 03/12/23 History Allergies Allergy/AdvReac Type Severity Reaction Status Date / Time No Known Allergies Allergy Unverified 03/12/23 22:46 Physical Exam Vitals: Vital Signs Temp Pulse Resp BP Pulse Ox 03/13/23 08:15 73 17 95 03/13/23 05:29 77 18 105/81 98 03/13/23 01:00 98.8 F 91 16 110/80 98 03/12/23 22:10 110 H 121/91 97 03/12/23 20:44 99.5 F 115 H 18 129/107 96 Intake and Output 03/12/23 03/13/23 03/13/23 22:59 06:59 14:59 Other: Weight 140.614 kg Results CBC & Chem 7: 03/13/23 09:07 03/13/23 09:07 Labs: Abnormal Lab Results - Last 24 Hours (Table) 03/12/23 03/12/23 03/13/23 Range/Units 22:52 22:52 01:36 WBC 12.7 H (3.8-10.6) k/uL RBC 5.61 H (3.80-5.40) m/uL Hgb 17.2 H (11.4-16.0) gm/dL Hct 50.8 H (34.0-46.0) % Neutrophils # 9.6 H (1.3-7.7) k/uL Carbon Dioxide 15 L (22-30) mmol/L BUN 32 H (7-17) mg/dL Creatinine 2.27 H (0.52-1.04) mg/dL Glucose 120 H (74-99) mg/dL Calcium 11.3 H (8.4-10.2) mg/dL Total Protein 8.9 H (6.3-8.2) g/dL Albumin 5.4 H (3.5-5.0) g/dL Urine Appearance (Clear) Ur Specific [place] (1.001-1.035) Urine Protein (Negative) Urine Blood (Negative) Urine Bilirubin (Negative) Ur Leukocyte Esterase (Negative) Urine RBC (0-5) /hpf Urine WBC (0-5) /hpf Ur Squamous Epith Cells (0-4) /hpf Urine Bacteria (None) /hpf Urine Mucus (None) /hpf Ur Amphetamines Screen Detected H (NotDetected) U Methamphetamines Scrn Detected H (NotDetected) U Benzodiazepines Scrn Detected H (NotDetected) 03/13/23 Range/Units 01:36 WBC (3.8-10.6) k/uL RBC (3.80-5.40) m/uL Hgb (11.4-16.0) gm/dL Hct (34.0-46.0) % Neutrophils # (1.3-7.7) k/uL Carbon Dioxide (22-30) mmol/L BUN (7-17) mg/dL Creatinine (0.52-1.04) mg/dL Glucose (74-99) mg/dL Calcium (8.4-10.2) mg/dL Total Protein (6.3-8.2) g/dL Albumin (3.5-5.0) g/dL Urine Appearance Cloudy H (Clear) Ur Specific [place] >1.050 H (1.001-1.035) Urine Protein 1+ H (Negative) Urine Blood Trace H (Negative) Urine Bilirubin 1+ H (Negative) Ur Leukocyte Esterase Large H (Negative) Urine RBC 38 H (0-5) /hpf Urine WBC 50 H (0-5) /hpf Ur Squamous Epith Cells 28 H (0-4) /hpf Urine Bacteria Occasional H (None) /hpf Urine Mucus Many H (None) /hpf Ur Amphetamines Screen (NotDetected) U Methamphetamines Scrn (NotDetected) U Benzodiazepines Scrn (NotDetected) Thrombosis Risk Factor Assmnt - DVT/VTE Prophylaxis DVT/VTE Prophylaxis: Pharmacologic Prophylaxis ordered, Mechanical Prophylaxis ordered Assessment and Plan Assessment: Assessment and plan * Acute renal failure * Acute metabolic encephalopathy * Urinary tract infection * Metabolic acidosis secondary to renal failure * Polysubstance use * In regards to acute renal failure, continue patient on IV hydration, follow-up on renal profile, CT abdomen and pelvis negative for hydronephrosis * In regards to metabolic encephalopathy, urine drug screen positive for amphetamine and methamphetamine and benzodiazepine, will confirm home medicat ion reconciliation. Continue IV hydration * In regards to urinary tract infection, urine cultures ordered, repeat UA ordered patient started on IV Rocephin * In regards to metabolic acidosis secondary to renal failure continue with IV hydration * CODE STATUS is full code Time with Patient: Greater than 30
[2023-03-13] MEDS: hydrOXYzine pamoate 25 MG CAP PO SCH (20:24)
[2023-03-13] MEDS: DEXTROMETHORPHAN PO SCH (20:25)
[2023-03-13] MEDS: BUPROPION PO SCH (20:25)
[2023-03-14] MEDS: SODIUM CHLORIDE 0.9% 1,000 ML IV SCH ×2 (00:03→08:32)
[2023-03-14 08:21] LABS: African American GFR (CKD) 76 (>60 ml/min/1.73 sqM); Anion Gap 11 mmol/L; Blood Urea Nitrogen 32 mg/dL (7-17); Calcium 9.4 mg/dL (8.4-10.2); Carbon Dioxide 20 mmol/L (22-30); Chloride 115 mmol/L (98-107); Glucose 85 mg/dL (74-99); Non-African American GFR(CKD) 66 (>60 ml/min/1.73 sqM); Potassium 3.6 mmol/L (3.5-5.1); Sodium 146 mmol/L (137-145)
[2023-03-14] MEDS: BUPROPION PO SCH ×2 (08:32→20:26)
[2023-03-14] MEDS: DEXTROMETHORPHAN PO SCH ×2 (08:32→20:26)
[2023-03-14 10:15] LABS: Basophils # (A) 0.05 X 10*3/uL (0.00-0.10); Basophils % (A) 0.8 %; Eosinophils # (A) 0.12 X 10*3/uL (0.04-0.35); HCT 36.6 % (37.2-46.3); Lymphocytes # (A) 1.69 X 10*3/uL (0.90-5.00); Lymphocytes % (A) 28.4 %; MCH 30.5 pg (27.0-32.0); MCHC 32.8 g/dL (32.0-37.0); MCV 92.9 FL (80.0-97.0); Mean Platelet Volume 10.6 FL (9.5-12.2); Monocytes # (A) 0.62 X 10*3/uL (0.20-1.00); Monocytes % (A) 10.4 %; NRBC Per 100 WBC 0 X 10*3/uL (0.00-0.01); Neutrophils # (A) 3.45 X 10*3/uL (1.80-7.70); Neutrophils % (A) 58.1 %; Platelet Count 174 X 10*3/uL (140-440); RBC 3.94 X 10*6/uL (4.10-5.20); RDW 12.3 % (11.5-14.5); WBC 5.95 X 10*3/uL (4.50-10.00)
--- NOTE | 2023-03-14 11:28 | P.NPCON ---
History of Present Illness - Reason for Consult acute renal failure - History of Present Illness Patient is a 42-year-old female who was admitted to the hospital with visual has hallucinations racing thoughts and delusions. Patient has history of polysubstance abuse. She was noted to have a urinary tract infection and is currently maintained on IV fluids. Drug screen was positive for amphetamines , methamphetamines and benzodiazepines. Serum creatinine was 2.27 on admission and decreased to 1.0 today. Patient is maintained on IV fluids. No significant documented hypotension. Patient has been voiding. Review of Systems As per HPI Past Medical History Past Medical History: Cancer History of Any Multi-Drug Resistant Organisms: None Reported Past Surgical History: Cholecystectomy Smoking Status: Unknown if ever smoked Past Alcohol Use History: Unable to Obtain Past Drug Use History: Unable to Obtain Medications and Allergies Home Medications Medication Instructions Recorded Confirmed Type Dextromethorphan HBr/Bupropion 1 tab PO BID 03/12/23 03/12/23 History [Auvelity ER 45-105 mg Tablet] hydrOXYzine pamoate [Vistaril] 50 mg PO HS 03/12/23 03/12/23 History Allergies Allergy/AdvReac Type Severity Reaction Status Date / Time No Known Allergies Allergy Unverified 03/12/23 22:46 Physical Exam Vitals: Vital Signs Temp Pulse Pulse Resp BP BP Pulse Ox 03/14/23 06:51 98.2 F 63 18 114/79 97 03/14/23 02:00 98.0 F 73 15 123/79 97 03/13/23 20:00 98.8 F 78 17 118/84 97 03/13/23 16:48 98.3 F 82 18 119/82 96 03/13/23 16:01 98.0 F 84 17 140/90 95 03/13/23 14:30 83 17 134/91 96 03/13/23 12:25 97.9 F 80 17 123/80 97 Intake and Output 03/13/23 03/14/23 03/14/23 22:59 06:59 14:59 Intake Total 1500 Balance 1500 Intake: Intake, IV Titration 1500 Amount Sodium Chloride 0.9% 1, 1500 000 ml @ 125 mls/hr IV . Q8H [facility] Rx#:[id number] Other: # Voids 2 Patient is sleeping but arousable. No acute distress Examination of the heart S1 and S2 Examination of the lungs bilateral breath sounds are heard Abdomen is soft nontender Examination of his of edema WHIZZER exam shows patient is lethargic but answers questions. She moves all 4 extremities. Results - Lab Results Most recent lab results Calcium 9.4 mg/dL (8.4-10.2) 03/14/23 06:58 03/14/23 06:58 03/14/23 06:58 Assessment and Plan Assessment: 1. Acute kidney injury Associated with volume depletion. Currently improving. UA shows 1+ protein and trace blood and WBCs 50. Maintained on IV fluids 2. Polysubstance abuse with urine drug screen positive for amphetamines, methamphetamines and benzodiazepines 3. Metabolic acidosis associated with acute kidney injury now improved. 4. Hypercalcemia associated with severe volume depletion and acute kidney injury, currently improved Plan: Continue with IV fluids Repeat labs in a.m. Continue antibiotics Change IV fluids to half-normal saline and sodium is mildly elevated. Continue to encourage increase oral intake particularly fluids. Next Thank you for the consultation. We will continue to follow the patient with you during her hospitalization.
[2023-03-14] MEDS: SODIUM CHLORIDE 0.45% 1,000 ML IV SCH ×2 (11:52→22:43)
--- NOTE | 2023-03-14 13:39 | P.PN ---
Subjective Progress Note Date: 03/14/23 * 42-year-old patient with past medical history significant for mood disorder presents to the emergency department with complaints of delusions, visual hallucination and racing thoughts. Patient was contacted appropriately per family and no spotting. Patient was noted to be excessively lethargic. Workup initiated in ER included CBC which were WBC of 12.7 hemoglobin 17.2 platelet count of 272. Serum chemistry shows sodium 143 potassium 4.4 carbon dioxide 15 BU and 22 creatinine 2.27 lactic acid of 1.1 lipase of 61 * Urinalysis obtained showed large amount of leukocyte esterase WBC and urine high squamous epithelial cells were noted * Urine drug seen obtained was positive for amphetamine, methamphetamine and benzodiazepine * Patient tested negative for influenza, RSV and Covid * CT head obtained negative for intracranial process * CT abdomen pelvis noted to be negative for intra-abdominal process * Patient was given IV fluid 2 L in ED and started on maintenance hydration. Follow-up urinalysis as well as serum chemistry obtained * History obtained from chart review secondary to patient being alert however the best historian * 03/14/2023: Patient seen and evaluated bedside, mentation has improved renal function improving mother at bedside patient little more responsive today. Will wait for psychiatry evaluation as well per mother patient has not been talking a lot at home. PHYSICAL EXAMINATION: GENERAL: The patient is alert and oriented x person and situation does follow commands ever does not talk , ill appearance HEENT: Pupils are round and equally reacting to light. EOMI. CARDIOVASCULAR: S1 and S2 present. No murmurs, rubs, or gallops. PULMONARY: Chest is clear to auscultation, no wheezing or crackles. ABDOMEN: Soft, nontender, nondistended, normoactive bowel sounds. No palpable organomegaly. MUSCULOSKELETAL: No joint swelling or deformity. EXTREMITIES: No cyanosis, clubbing, or pedal edema. NEUROLOGICAL: Alert and moving upper and lower extremities no focal deficit, Objective - Vital Signs Vital signs: Vital Signs Temp 98.0 F 03/14/23 02:00 Pulse 73 03/14/23 02:00 Resp 15 03/14/23 02:00 BP 123/79 03/14/23 02:00 Pulse Ox 97 03/14/23 02:00 FiO2 Intake & Output 03/13/23 03/13/23 03/14/23 06:59 18:59 06:59 Intake Total 1500 Balance 1500 Weight 140.614 kg 140.614 kg Intake: Intake, IV Titration 1500 Amount Sodium Chloride 0.9% 1, 1500 000 ml @ 125 mls/hr IV . Q8H [facility] Rx#:[id number] Other: # Voids 2 - Labs CBC & Chem 7: 03/14/23 06:58 03/14/23 06:58 Labs: Abnormal Lab Results - Last 24 Hours (Table) 03/13/23 Range/Units 09:07 Chloride 110 H (98-107) mmol/L Carbon Dioxide 21 L (22-30) mmol/L BUN 40 H (7-17) mg/dL Creatinine 1.96 H (0.52-1.04) mg/dL Glucose 109 H (74-99) mg/dL Assessment and Plan Assessment: Assessment and plan * Acute renal failure * Acute metabolic encephalopathy * Urinary tract infection * Metabolic acidosis secondary to renal failure * Polysubstance use with suspect Acute Psychosis * In regards to acute renal failure, continue patient on IV hydration, follow-up on renal profile, CT abdomen and pelvis negative for hydronephrosis, renal function improving * In regards to metabolic encephalopathy, urine drug screen positive for amphetamine and methamphetamine and benzodiazepine, Continue IV hydration * In regards to urinary tract infection, urine cultures ordered, continue IV Rocephin * In regards to metabolic acidosis secondary to renal failure continue with IV hydration * Regards to underlying psychiatric issues psychiatry consulted * CODE STATUS is full code Time with Patient: Greater than 30
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
[2023-03-14] MEDS: OLANZapine ODT 5 MG TAB PO SCH (20:26)
[2023-03-14] MEDS: hydrOXYzine pamoate 25 MG CAP PO SCH (20:26)
[2023-03-15] MEDS: SODIUM CHLORIDE 0.45% 1,000 ML IV SCH ×2 (06:46→17:21)
[2023-03-15] MEDS: DEXTROMETHORPHAN PO SCH ×2 (08:24→19:59)
[2023-03-15] MEDS: BUPROPION PO SCH ×2 (08:24→19:59)
[2023-03-15 09:05] LABS: BUN/Creat Ratio 24.86 Ratio (12.00-20.00); Blood Urea Nitrogen 17.4 mg/dL (9.0-27.0); Calcium 9.1 mg/dL (8.7-10.3); Carbon Dioxide 20.2 mmol/L (21.6-31.8); Chloride 112 mmol/L (96-109); Glucose 69 mg/dL (70-110); Potassium 3.7 mmol/L (3.5-5.5); Sodium 144 mmol/L (135-145)
[2023-03-15 09:24] LABS: HCT 35.2 % (37.2-46.3); HGB 11.5 g/dL (12.0-15.0); MCH 30.7 pg (27.0-32.0); MCHC 32.7 g/dL (32.0-37.0); MCV 94.1 FL (80.0-97.0); NRBC Per 100 WBC 0 X 10*3/uL (0.00-0.01); Platelet Count 160 X 10*3/uL (140-440); RBC 3.74 X 10*6/uL (4.10-5.20); RDW 12.1 % (11.5-14.5)
--- NOTE | 2023-03-15 11:21 | P.PN ---
Subjective Progress Note Date: 03/14/23 Patient was seen for a follow-up. Patient's mother was also present today. I did not disclose to her about her urine drug screen. Patient's mother admits that patient does have history of substance abuse, using Meth in the past. Patient was diagnosed with stage III uterine cancer in October 2020. 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 Patient had undergone complete hysterectomy with history of radiation and chemotherapy. After her chemo, she was fine. All of a sudden she had an episode of psychosis, when she would stop talking for about 6 months. She had to be told how to do her staff. She would not get into the shower, and needed assistance. After 6 months, she came out of it and was fine, working as she works as door-dash. Last Wednesday, on 03/09/2023, she was perfectly fine, she went to her friend's house on Wednesday. morning she was in the bed, staring at the aldana. She would rock back and forth, with anxiety and depression. Objective - Vital Signs Vital signs: Vital Signs Temp 98.6 F 03/14/23 12:35 Pulse 62 03/14/23 12:35 Resp 18 03/14/23 12:35 BP 113/76 03/14/23 12:35 Pulse Ox 98 03/14/23 12:35 FiO2 Intake & Output 03/13/23 03/14/23 03/14/23 18:59 06:59 18:59 Intake Total 1500 Balance 1500 Weight 140.614 kg Intake: Intake, IV Titration 1500 Amount Sodium Chloride 0.9% 1, 1500 000 ml @ 125 mls/hr IV . Q8H [facility] Rx#:[id number] Other: # Voids 2 - Exam Patient continues to be psychotic. She does make eye contact, but would not answer to questions. She would not cooperate with the testing only partially. Rest of the examination is unchanged. - Labs CBC & Chem 7: 03/15/23 05:27 03/15/23 05:27 Labs: Abnormal Lab Results - Last 24 Hours (Table) 03/14/23 03/14/23 Range/Units 06:58 06:58 RBC 3.94 L (4.10-5.20) X 10*6/uL Hct 36.6 L (37.2-46.3) % Sodium 146 H (137-145) mmol/L Chloride 115 H (98-107) mmol/L Carbon Dioxide 20 L (22-30) mmol/L BUN 32 H (7-17) mg/dL Assessment and Plan Assessment: * Altered mental status, likely due to acute psychosis. Rule out toxic metabolic encephalopathy related to below. * Polysubstance abuse, with urine positive for amphetamines, methamphetamines. Patient has history of abusing Meth, as per patient's mother statement. Doubt if false-positive related to use of dextromethorphan/bupropion. * Possible UTI * Acute kidney injury Plan: * Psychiatry has seen the patient, diagnosed with unspecified psychotic disorder. 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 Benzodiazepine abuse, rule out catatonia. Rule out NMDA encephalitis. Agree with assessment. * We will check NMDA antibodies in the serum. Await YURIDIA. * Patient started on Zyprexa by psychiatry. * EEG evaluate for encephalopathy, rule out any epileptiform activity * B12 359, folate 18.3, YURIDIA pending, TSH 1.85, RPR nonreactive * Nephrology input appreciated. Acute kidney injury, associated with volume depletion. * Patient on ceftriaxone for acute UTI. * Discussed with patient's mother in detail.
--- NOTE | 2023-03-15 13:26 | EEG ---
ELECTROENCEPHALOGRAM REPORT PREAMBLE: This is a 42-year-old female with altered mental status. EEG FINDINGS: This is a 21-channel digital EEG recorded with a video component, utilizing 10/20 international system with referential and bipolar montages. Background consists of well-developed, moderately well regulated, mixed frequencies of 8 to 9 hertz alpha, mixed with some low voltage 6-7 hertz theta activity seen in bihemispheric region. Background is posterior dominant and reactive to eye opening and closing. Photic driving response was seen with some flash frequencies. Drowsiness was seen with appearance of bilaterally symmetric theta frequency rhythm. Deeper stages of sleep were not seen. No focal or generalized epileptiform activity was seen. IMPRESSION: This is an abnormal EEG due to background slowing of mild degree. This is suggestive of generalized cerebral dysfunction as can be seen with toxic metabolic encephalopathy or medication effect. No epileptiform activity was seen. [id number] / IJN: [id number] /
--- NOTE | 2023-03-15 13:29 | P.PN ---
Subjective Progress Note Date: 03/15/23 * 42-year-old patient with past medical history significant for mood disorder presents to the emergency department with complaints of delusions, visual hallucination and racing thoughts. Patient was contacted appropriately per family and no spotting. Patient was noted to be excessively lethargic. Workup initiated in ER included CBC which were WBC of 12.7 hemoglobin 17.2 platelet count of 272. Serum chemistry shows sodium 143 potassium 4.4 carbon dioxide 15 BU and 22 creatinine 2.27 lactic acid of 1.1 lipase of 61 * Urinalysis obtained showed large amount of leukocyte esterase WBC and urine high squamous epithelial cells were noted * Urine drug seen obtained was positive for amphetamine, methamphetamine and benzodiazepine * Patient tested negative for influenza, RSV and Covid * CT head obtained negative for intracranial process * CT abdomen pelvis noted to be negative for intra-abdominal process * Patient was given IV fluid 2 L in ED and started on maintenance hydration. Follow-up urinalysis as well as serum chemistry obtained * History obtained from chart review secondary to patient being alert however the best historian * 03/14/2023: Patient seen and evaluated bedside, mentation has improved renal function improving mother at bedside patient little more responsive today. Will wait for psychiatry evaluation as well per mother patient has not been talking a lot at home. * 03/15/2023: Patient seen and evaluated bedside patient sleeping easily arousable patient on some questions and patient has improved significantly. Creatinine within normal limits, treponema palladium antibody nonreactive. Significant improvement in mentation PHYSICAL EXAMINATION: GENERAL: The patient is alert and oriented x person and situation x 3, mentation has improved HEENT: Pupils are round and equally reacting to light. EOMI. CARDIOVASCULAR: S1 and S2 present. No murmurs, rubs, or gallops. PULMONARY: Chest is clear to auscultation, no wheezing or crackles. ABDOMEN: Soft, nontender, nondistended, normoactive bowel sounds. No palpable or ganomegaly. MUSCULOSKELETAL: No joint swelling or deformity. EXTREMITIES: No cyanosis, clubbing, or pedal edema. NEUROLOGICAL: Alert and oriented 3, withdrawn, moving both upper and lower extremities following commands Objective - Vital Signs Vital signs: Vital Signs Temp 98.1 F 03/15/23 07:40 Pulse 60 03/15/23 07:40 Resp 18 03/15/23 07:40 BP 119/81 03/15/23 07:40 Pulse Ox 96 03/15/23 07:40 FiO2 Intake & Output 03/14/23 03/15/23 03/15/23 18:59 06:59 18:59 Intake Total 1440 Balance 1440 Intake: Intake, IV Titration 1200 Amount Sodium Chloride 0.45% 1, 1200 000 ml @ 100 mls/hr IV . Q10H [facility] Rx#:[id number] Oral 240 Other: # Voids 1 1 - Labs CBC & Chem 7: 03/15/23 05:27 03/15/23 05:27 Labs: Abnormal Lab Results - Last 24 Hours (Table) 03/15/23 03/15/23 Range/Units 05:27 05:27 WBC 4.40 L (4.50-10.00) X 10*3/uL RBC 3.74 L (4.10-5.20) X 10*6/uL Hgb 11.5 L (12.0-15.0) g/dL Hct 35.2 L (37.2-46.3) % Chloride 112 H (96-109) mmol/L Carbon Dioxide 20.2 L (21.6-31.8) mmol/L BUN/Creatinine Ratio 24.86 H (12.00-20.00) Ratio Glucose 69 L (70-110) mg/dL Assessment and Plan Assessment: Assessment and plan * Acute renal failure resolved * Acute metabolic encephalopathy resolved * Urinary tract infection * Metabolic acidosis secondary to renal failure * Polysubstance use with suspect Acute Psychosis * In regards to acute renal failure, continue patient on IV hydration, follow-up on renal profile, CT abdomen and pelvis negative for hydronephrosis, renal function improving * In regards to metabolic encephalopathy, urine drug screen positive for amphetamine and methamphetamine and benzodiazepine, Continue IV hydration * In regards to urinary tract infection, urine cultures ordered, continue IV Rocephin day 3 * In regards to metabolic acidosis secondary to renal failure continue with IV hydration * Regards to underlying psychiatric issues psychiatry consulted, appreciate recommendations * Physical therapy occupational therapy consulted * CODE STATUS is full code Time with Patient: Greater than 30
--- NOTE | 2023-03-15 14:58 | P.PN ---
Subjective Patient is seen in follow-up for acute kidney injury. Renal function continues to improve. On IV fluids. Sodium level also better. Poor historian. Vital signs are stable. General: No acute distress. HEENT: Head exam is unremarkable. LUNGS: No audible rhonchi or wheezes. HEART: Rate and Rhythm are regular. ABDOMEN: Nontender. EXTREMITITES: No edema. Objective - Vital Signs Vital signs: Vital Signs Temp 98.1 F 03/15/23 07:40 Pulse 60 03/15/23 07:40 Resp 18 03/15/23 07:40 BP 119/81 03/15/23 07:40 Pulse Ox 96 03/15/23 07:40 FiO2 Intake & Output 03/14/23 03/15/23 03/15/23 18:59 06:59 18:59 Intake Total 1440 Balance 1440 Intake: Intake, IV Titration 1200 Amount Sodium Chloride 0.45% 1, 1200 000 ml @ 100 mls/hr IV . Q10H [facility] Rx#:[id number] Oral 240 Other: # Voids 1 1 - Labs CBC & Chem 7: 03/15/23 05:27 03/15/23 05:27 Labs: Abnormal Lab Results - Last 24 Hours (Table) 03/15/23 03/15/23 Range/Units 05:27 05:27 WBC 4.40 L (4.50-10.00) X 10*3/uL RBC 3.74 L (4.10-5.20) X 10*6/uL Hgb 11.5 L (12.0-15.0) g/dL Hct 35.2 L (37.2-46.3) % Chloride 112 H (96-109) mmol/L Carbon Dioxide 20.2 L (21.6-31.8) mmol/L BUN/Creatinine Ratio 24.86 H (12.00-20.00) Ratio Glucose 69 L (70-110) mg/dL Assessment and Plan Plan: Assessment: 1. Acute kidney injury secondary to vasomotor nephropathy from hypovolemia improving with IV hydration. GFR back to baseline. 2. Hypernatremia from lack of oral water intake. Improving with hypotonic fluid infusion. 3. Hypercalcemia secondary to volume contraction. resolved. 4. Metabolic acidosis secondary to acute kidney injury and IV fluids. Plan: Maintain half-normal saline. Encouraged oral intake, including free water.
[2023-03-15] MEDS: OLANZapine ODT 5 MG TAB PO SCH (19:59)
[2023-03-15] MEDS: hydrOXYzine pamoate 25 MG CAP PO SCH (20:00)
--- NOTE | 2023-03-15 20:32 | P.PN ---
Subjective Progress Note Date: 03/15/23 Patient was seen for a follow-up. Patient has improved remarkably. She is smiling, talking. I asked about if she did any drugs, patient states "I don't know". Denies any headache. Patient's mother admits that patient does have history of substance abuse, using Meth in the past. Patient was diagnosed with stage III uterine cancer in October 2020. 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 Patient had undergone complete hysterectomy with history of radiation and chemotherapy. After her chemo, she was fine. All of a sudden she had an episode of psychosis, when she would stop talking for about 6 months. She had to be told how to do her staff. She would not get into the shower, and needed assistance. After 6 months, she came out of it and was fine, working as she works as door-dash. Last Wednesday, on 03/09/2023, she was perfectly fine, she went to her friend's house on Wednesday. morning she was in the bed, staring at the aldana. She would rock back and forth, with anxiety and depression. Objective - Vital Signs Vital signs: Vital Signs Temp 98.4 F 03/15/23 19:25 Pulse 66 03/15/23 19:25 Resp 16 03/15/23 19:25 BP 127/81 03/15/23 19:25 Pulse Ox 98 03/15/23 19:25 FiO2 Intake & Output 03/15/23 03/15/23 03/16/23 06:59 18:59 06:59 Intake Total 1440 Balance 1440 Intake: Intake, IV Titration 1200 Amount Sodium Chloride 0.45% 1, 1200 000 ml @ 100 mls/hr IV . Q10H [facility] Rx#:[id number] Oral 240 Other: # Voids 1 2 - Exam Patient has improved remarkably. She is smiling. She knows it is March and the year is and that she is in [facility] and name of the current president. Speech and language functions are normal. Face is symmetric. Rest of the examination is nonfocal. - Labs CBC & Chem 7: 03/15/23 05:27 03/15/23 05:27 Labs: Abnormal Lab Results - Last 24 Hours (Table) 01/15/24 01/15/24 Range/Units 05:27 05:27 WBC 4.40 L (4.50-10.00) X 10*3/uL RBC 3.74 L (4.10-5.20) X 10*6/uL Hgb 11.5 L (12.0-15.0) g/dL Hct 35.2 L (37.2-46.3) % Chloride 112 H (96-109) mmol/L Carbon Dioxide 20.2 L (21.6-31.8) mmol/L BUN/Creatinine Ratio 24.86 H (12.00-20.00) Ratio Glucose 69 L (70-110) mg/dL Assessment and Plan Assessment: * Altered mental status, likely due to acute psychosis. Rule out toxic metabolic encephalopathy related to below. * Polysubstance abuse, with urine positive for amphetamines, methamphetamines. Patient has history of abusing Meth, as per patient's mother statement. Doubt if false-positive related to use of dextromethorphan/bupropion. * Possible UTI * Acute kidney injury Plan: * Psychiatry has seen the patient, diagnosed with unspecified psychotic disorder. 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 Benzodiazepine abuse, rule out catatonia. Rule out NMDA encephalitis. Agree with assessment. * Await NMDA antibodies in the serum. * Patient started on Zyprexa by psychiatry. * EEG was abnormal due to background slowing, suggestive of mild encephalopathy. * B12 359, folate 18.3, YURIDIA negative, TSH 1.85, RPR nonreactive * Nephrology input appreciated. Acute kidney injury, associated with volume depletion. * Patient on ceftriaxone for acute UTI. * Dr. Tad Biswas to resume neurology service in the morning.
[2023-03-16] MEDS: SODIUM CHLORIDE 0.45% 1,000 ML IV SCH ×2 (01:29→08:21)
[2023-03-16] MEDS: BUPROPION PO SCH ×2 (08:21→20:04)
[2023-03-16] MEDS: DEXTROMETHORPHAN PO SCH ×2 (08:21→20:04)
[2023-03-16 10:46] LABS: HCT 36.3 % (37.2-46.3); HGB 11.6 g/dL (12.0-15.0); MCH 29.9 pg (27.0-32.0); MCV 93.6 FL (80.0-97.0); Mean Platelet Volume 11.1 FL (9.5-12.2); NRBC Per 100 WBC 0 X 10*3/uL (0.00-0.01); Platelet Count 158 X 10*3/uL (140-440); RBC 3.88 X 10*6/uL (4.10-5.20); RDW 12.1 % (11.5-14.5); WBC 3.99 X 10*3/uL (4.50-10.00)
[2023-03-16 11:15] LABS: BUN/Creat Ratio 14.12 Ratio (12.00-20.00); Blood Urea Nitrogen 11.3 mg/dL (9.0-27.0); C Reactive Protein <0.30 mg/dL (0.00-0.80); Calcium 8.9 mg/dL (8.7-10.3); Carbon Dioxide 21.2 mmol/L (21.6-31.8); Chloride 111 mmol/L (96-109); Glucose 77 mg/dL (70-110); Magnesium 1.7 mg/dL (1.5-2.4); Potassium 3.6 mmol/L (3.5-5.5); Sodium 143 mmol/L (135-145)
[2023-03-16] MEDS ORDERED: POTASSIUM CHLORIDE ER 20 MEQ TAB.ER PO STA (12:19)
--- NOTE | 2023-03-16 12:20 | P.PN ---
Subjective Patient is seen in follow-up for acute kidney injury. Renal function back to baseline. On IV fluids. Sodium level also better. Poor historian. Vital signs are stable. General: No acute distress. HEENT: Head exam is unremarkable. LUNGS: No audible rhonchi or wheezes. HEART: Rate and Rhythm are regular. ABDOMEN: Nontender. EXTREMITITES: No edema. Objective - Vital Signs Vital signs: Vital Signs Temp 97.8 F 03/16/23 11:47 Pulse 58 L 03/16/23 11:47 Resp 18 03/16/23 11:47 BP 116/78 03/16/23 11:47 Pulse Ox 100 03/16/23 11:47 FiO2 Intake & Output 03/15/23 03/16/23 03/16/23 18:59 06:59 18:59 Intake Total 1800 Balance 1800 Intake: Intake, IV Titration 1200 Amount Sodium Chloride 0.45% 1, 1200 000 ml @ 100 mls/hr IV . Q10H [facility] Rx#:[id number] Oral 600 Other: Voiding Method Toilet Toilet # Voids 2 3 - Labs CBC & Chem 7: 03/16/23 05:33 03/16/23 05:33 Labs: Abnormal Lab Results - Last 24 Hours (Table) 03/16/23 03/16/23 Range/Units 05:33 05:33 WBC 3.99 L (4.50-10.00) X 10*3/uL RBC 3.88 L (4.10-5.20) X 10*6/uL Hgb 11.6 L (12.0-15.0) g/dL Hct 36.3 L (37.2-46.3) % Chloride 111 H (96-109) mmol/L Carbon Dioxide 21.2 L (21.6-31.8) mmol/L Assessment and Plan Plan: Assessment: 1. Acute kidney injury secondary to vasomotor nephropathy from hypovolemia improving with IV hydration. GFR back to baseline. 2. Hypernatremia from lack of oral water intake. Improving with hypotonic fluid infusion. 3. Hypercalcemia secondary to volume contraction. Resolved. 4. Metabolic acidosis secondary to acute kidney injury and IV fluids. Better. Plan: Maintain half-normal saline - decrease rate to 50 cc/hr. Encouraged oral intake, including free water.
--- NOTE | 2023-03-16 13:11 | P.PN ---
Subjective Progress Note Date: 03/16/23 * 42-year-old patient with past medical history significant for mood disorder presents to the emergency department with complaints of delusions, visual hallucination and racing thoughts. Patient was contacted appropriately per family and no spotting. Patient was noted to be excessively lethargic. Workup initiated in ER included CBC which were WBC of 12.7 hemoglobin 17.2 platelet count of 272. Serum chemistry shows sodium 143 potassium 4.4 carbon dioxide 15 BU and 22 creatinine 2.27 lactic acid of 1.1 lipase of 61 * Urinalysis obtained showed large amount of leukocyte esterase WBC and urine high squamous epithelial cells were noted * Urine drug seen obtained was positive for amphetamine, methamphetamine and benzodiazepine * Patient tested negative for influenza, RSV and Covid * CT head obtained negative for intracranial process * CT abdomen pelvis noted to be negative for intra-abdominal process * Patient was given IV fluid 2 L in ED and started on maintenance hydration. Follow-up urinalysis as well as serum chemistry obtained * History obtained from chart review secondary to patient being alert however the best historian * 03/14/2023: Patient seen and evaluated bedside, mentation has improved renal function improving mother at bedside patient little more responsive today. Will wait for psychiatry evaluation as well per mother patient has not been talking a lot at home. * 03/15/2023: Patient seen and evaluated bedside patient sleeping easily arousable patient on some questions and patient has improved significantly. Creatinine within normal limits, treponema palladium antibody nonreactive. Significant improvement in mentation * 03/16/2023: Patient seen and evaluated bedside during assessment patient is alert and oriented 3, patient is following commands. Appreciate input from neurology as well as nephrology. Renal function has improved. Gen. patient is a poor historian encouraged oral intake will need physical therapy assessment for discharge planning PHYSICAL EXAMINATION: GENERAL: The patient is alert and oriented x person and situation x 3, mentation has improved HEENT: Pupils are round and equally reacting to light. EOMI. CARDIOVASCULAR: S1 and S2 present. No murmurs, rubs, or gallops. PULMONARY: Chest is clear to auscultation, no wheezing or crackles. ABDOMEN: Soft, nontender, nondistended, normoactive bowel sounds. No palpable organomegaly. MUSCULOSKELETAL: No joint swelling or deformity. EXTREMITIES: No cyanosis, clubbing, or pedal edema. NEUROLOGICAL: Alert and oriented 3, withdrawn, moving both upper and lower extremities following commands Objective - Vital Signs Vital signs: Vital Signs Temp 97.8 F 03/16/23 11:47 Pulse 58 L 03/16/23 11:47 Resp 18 03/16/23 11:47 BP 116/78 03/16/23 11:47 Pulse Ox 100 03/16/23 11:47 FiO2 Intake & Output 03/15/23 03/16/23 03/16/23 18:59 06:59 18:59 Intake Total 1800 Balance 1800 Intake: Intake, IV Titration 1200 Amount Sodium Chloride 0.45% 1, 1200 000 ml @ 100 mls/hr IV . Q10H NICOLE Rx#:[id number] Oral 600 Other: Voiding Method Toilet Toilet # Voids 2 3 - Labs CBC & Chem 7: 03/16/23 05:33 03/16/23 05:33 Labs: Abnormal Lab Results - Last 24 Hours (Table) 03/16/23 03/16/23 Range/Units 05:33 05:33 WBC 3.99 L (4.50-10.00) X 10*3/uL RBC 3.88 L (4.10-5.20) X 10*6/uL Hgb 11.6 L (12.0-15.0) g/dL Hct 36.3 L (37.2-46.3) % Chloride 111 H (96-109) mmol/L Carbon Dioxide 21.2 L (21.6-31.8) mmol/L Assessment and Plan Assessment: Assessment and plan * Acute renal failure resolved * Acute metabolic encephalopathy resolved * Urinary tract infection * Metabolic acidosis secondary to renal failure * Polysubstance use with suspect Acute Psychosis * In regards to acute renal failure, continue patient on IV hydration, follow-up on renal profile, CT abdomen and pelvis negative for hydronephrosis, renal function improving, appreciate input from nephrology * In regards to metabolic encephalopathy, urine drug screen positive for amphetamine and methamphetamine and benzodiazepine, Continue IV hydration, EEG shows diffuse slowing suggestive of cerebral dysfunction metabolic encephalopathy * In regards to urinary tract infection, urine cultures ordered, continue IV Rocephin day 4 * In regards to metabolic acidosis secondary to renal failure continue with IV hydration * Regards to underlying psychiatric issues psychiatry consulted, appreciate recommendations * Physical therapy occupational therapy consulted * CODE STATUS is full code
--- NOTE | 2023-03-16 13:40 | P.PN ---
Subjective Progress Note Date: 03/16/23 I am seeing the patient for the first time during this admission. Please refer to Dr. Alonzo for further details. It seems she had confusion with psychosis. She had history of uterine cancer in 2020 and is in remission. According to patient she feels she is doing drastically better and no headache or confusion. Objective - Vital Signs Vital signs: Vital Signs Temp 97.8 F 03/16/23 11:47 Pulse 58 L 03/16/23 11:47 Resp 18 03/16/23 11:47 BP 116/78 03/16/23 11:47 Pulse Ox 100 03/16/23 11:47 FiO2 Intake & Output 03/15/23 03/16/23 03/16/23 18:59 06:59 18:59 Intake Total 1800 Balance 1800 Intake: Intake, IV Titration 1200 Amount Sodium Chloride 0.45% 1, 1200 000 ml @ 100 mls/hr IV . Q10H NICOLE Rx#:[id number] Oral 600 Other: Voiding Method Toilet Toilet # Voids 2 3 - Exam GENERAL: The patient is lying in bed and is not in acute distress. NEUROLOGICAL: Higher mental function: The patient is awake, alert, oriented to self, place and time. She correctly stated the current state. Patient is following commands. No aphasia and no neglect. Cranial nerves: The pupils are round, equal and reactive to light. Visual musa are full to confrontation throughout. Extraocular movement is intact no nystagmus is noted. Facial sensation is normal to touch throughout. The facial strength is normal throughout. Tongue is midline and moved [id number] without any difficulty. No dysarthria is noted. Motor: The strength is 5 over 5 throughout. Normal tone and bulk. Cerebellum: Normal finger to nose bilaterally. Sensation: Sensation is normal to touch throughout. - Labs CBC & Chem 7: 03/16/23 05:33 03/16/23 05:33 Labs: Abnormal Lab Results - Last 24 Hours (Table) 03/16/23 03/16/23 Range/Units 05:33 05:33 WBC 3.99 L (4.50-10.00) X 10*3/uL RBC 3.88 L (4.10-5.20) X 10*6/uL Hgb 11.6 L (12.0-15.0) g/dL Hct 36.3 L (37.2-46.3) % Chloride 111 H (96-109) mmol/L Carbon Dioxide 21.2 L (21.6-31.8) mmol/L Assessment and Plan Assessment: * Altered mental status, likely due to acute psychosis. Rule out toxic metaboli c encephalopathy related to below. Also rule out NMDA encephalitis---mentation improved. * Polysubstance abuse, with urine positive for amphetamines, methamphetamines. Patient has history of abusing Meth, as per patient's mother statement. Per Dr. Alonzo doubt if false-positive related to use of de xtromethorphan/bupropion. * Possible UTI * Acute kidney injury * History of uterine cancer in 2020 and is in remission Plan: * Psychiatry has seen the patient, diagnosed with unspecified psychotic disorder. 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 Benzodiazepine abuse, rule out catatonia. Rule out NMDA encephalitis. * Await NMDA antibodies in the serum. * Patient started on Zyprexa by psychiatry. * EEG was reported as abnormal due to background slowing, suggestive of mild encephalopathy. * B12 359, folate 18.3, YURIDIA negative, TSH 1.85, RPR nonreactive * Nephrology is on board. * Patient on ceftriaxone for acute UTI. Will continue to follow. Time with Patient: Less than 30
[2023-03-16] MEDS: hydrOXYzine pamoate 25 MG CAP PO SCH (20:04)
[2023-03-16] MEDS: OLANZapine ODT 5 MG TAB PO SCH (20:04)
[2023-03-17 07:57] VITALS: RESP 18
[2023-03-17] MEDS: BUPROPION PO SCH (09:40)
[2023-03-17] MEDS: DEXTROMETHORPHAN PO SCH (09:40)
[2023-03-17] MEDS: SODIUM CHLORIDE 0.45% 1,000 ML IV SCH (09:44)
--- NOTE | 2023-03-17 10:37 | P.DS ---
Providers Date of admission: 03/13/23 02:05 Expected date of discharge: 03/17/23 Attending physician: Velvet Segal Consults: 03/13/23 02:02 Consult Physician Routine Consulting Provider: Palak Alonzo Consult Reason/Comments: AMS Do you want consulting provider notified?: Yes 03/13/23 13:03 Consult Physician Routine Consulting Provider: Sally Pacheco Consult Reason/Comments: Acute kidney injury, AMS Do you want consulting provider notified?: Yes 03/13/23 14:46 Consult Physician Routine Consulting Provider: Nilay Moffett Consult Reason/Comments: Polysubstance use with acute psychosis Do you want consulting provider notified?: Yes Primary care physician: [facility] [place] Course: * 42-year-old patient with past medical history significant for mood disorder presents to the emergency department with complaints of delusions, visual hallucination and racing thoughts. Patient was contacted appropriately per family and no spotting. Patient was noted to be excessively lethargic. Workup initiated in ER included CBC which were WBC of 12.7 hemoglobin 17.2 platelet count of 272. Serum chemistry shows sodium 143 potassium 4.4 carbon dioxide 15 BU and 22 creatinine 2.27 lactic acid of 1.1 lipase of 61 * Urinalysis obtained showed large amount of leukocyte esterase WBC and urine high squamous epithelial cells were noted * Urine drug seen obtained was positive for amphetamine, methamphetamine and benzodiazepine * Patient tested negative for influenza, RSV and Covid * CT head obtained negative for intracranial process * CT abdomen pelvis noted to be negative for intra-abdominal process * Patient was given IV fluid 2 L in ED and started on maintenance hydration. Follow-up urinalysis as well as serum chemistry obtained * History obtained from chart review secondary to patient being alert however the best historian * 03/14/2023: Patient seen and evaluated bedside, mentation has improved renal function improving mother at bedside patient little more responsive today. Will wait for psychiatry evaluation as well per mother patient has not been talking a lot at home. * 03/15/2023: Patient seen and evaluated bedside patient sleeping easily arousable patient on some questions and patient has improved significantly. Creatinine within normal limits, treponema palladium antibody nonreactive. Significant improvement in mentation * 03/16/2023: Patient seen and evaluated bedside during assessment patient is alert and oriented 3, patient is following commands. Appreciate input from neurology as well as nephrology. Renal function has improved. Gen. patient is a poor historian encouraged oral intake will need physical therapy assessment for discharge planning * 03/17/2023: Patient seen and evaluated bedside, during my evaluation patient is alert and answered questions appropriately. Patient denies of any acute issues patient ambulated as well. Patient appears at baseline. Blood work completed, transition to oral antibiotic, psychiatry had given Zyprexa at night will give prescription for 7 days with outpatient follow-up PHYSICAL EXAMINATION: GENERAL: The patient is alert and oriented x person and situation x 3, mentation has improved HEENT: Pupils are round and equally reacting to light. EOMI. CARDIOVASCULAR: S1 and S2 present. No murmurs, rubs, or gallops. PULMONARY: Chest is clear to auscultation, no wheezing or crackles. ABDOMEN: Soft, nontender, nondistended, normoactive bowel sounds. No palpable organomegaly. MUSCULOSKELETAL: No joint swelling or deformity. EXTREMITIES: No cyanosis, clubbing, or pedal edema. NEUROLOGICAL: Alert and oriented 3, withdrawn, moving both upper and lower extremities following commands Assessment: Assessment and plan * Acute renal failure resolved * Acute metabolic encephalopathy resolved * Urinary tract infection * Metabolic acidosis secondary to renal failure * Polysubstance use with suspect Acute Psychosis resolved * In regards to acute renal failure, resuscitated with IV fluid, renal function back at baseline, follow-up on renal profile, CT abdomen and pelvis negative for hydronephrosis, renal function improving, appreciate input from nephrology * In regards to metabolic encephalopathy, urine drug screen positive for amphetamine and methamphetamine and benzodiazepine, Continue IV hydration, EEG shows diffuse slowing suggestive of cerebral dysfunction metabolic encephalopathy * In regards to urinary tract infection, urine cultures were ordered not available at this time, transition from IV Rocephin to oral Ceftin * In regards to metabolic acidosis secondary to renal failure resolved * Regards to underlying psychiatric issues psychiatry consulted, appreciate recommendations must started Zyprexa while inpatient * Physical therapy occupational therapy consulted, discharged home Patient Condition at Discharge: Stable Plan - Discharge Summary Discharge Rx Participant: Yes New Discharge Prescriptions: New OLANZapine ODT [ZyPREXA Zydis] 5 mg PO HS 7 Days #7 tab cefUROXime axetiL [Ceftin] 500 mg PO BID 3 Days #6 tab Continue Dextromethorphan HBr/Bupropion [Auvelity ER 45-105 mg Tablet] 1 tab PO BID hydrOXYzine pamoate [Vistaril] 50 mg PO HS Discharge Medication List Dextromethorphan HBr/Bupropion [Auvelity ER 45-105 mg Tablet] 1 tab PO BID 03/12/23 [History] hydrOXYzine pamoate [Vistaril] 50 mg PO HS 03/12/23 [History] OLANZapine ODT [ZyPREXA Zydis] 5 mg PO HS 7 Days #7 tab 03/17/23 [Rx] cefUROXime axetiL [Ceftin] 500 mg PO BID 3 Days #6 tab 03/17/23 [Rx] Follow up Appointment(s)/Referral(s): Jaylen Felder MD [Primary Care Provider] - 1-2 days Discharge/Stand Alone Forms: Community Resources, Outpatient Counseling Discharge Disposition: HOME SELF-CARE
[2023-03-17 11:07] LABS: HCT 34.8 % (37.2-46.3); HGB 11.5 g/dL (12.0-15.0); MCH 30.5 pg (27.0-32.0); MCV 92.3 FL (80.0-97.0); Mean Platelet Volume 11.2 FL (9.5-12.2); NRBC Per 100 WBC 0 X 10*3/uL (0.00-0.01); Platelet Count 153 X 10*3/uL (140-440); RBC 3.77 X 10*6/uL (4.10-5.20); RDW 12.1 % (11.5-14.5); WBC 4.03 X 10*3/uL (4.50-10.00)
[2023-03-17 11:18] LABS: BUN/Creat Ratio 13.38 Ratio (12.00-20.00); Blood Urea Nitrogen 10.7 mg/dL (9.0-27.0); Calcium 8.8 mg/dL (8.7-10.3); Chloride 112 mmol/L (96-109); Glucose 81 mg/dL (70-110); Potassium 3.9 mmol/L (3.5-5.5); Sodium 144 mmol/L (135-145)
--- NOTE | 2023-03-17 11:35 | P.PN ---
Subjective Patient is seen in follow-up for acute kidney injury. Renal function back to baseline. On IV fluids. Sodium level stable. Poor historian. Vital signs are stable. General: No acute distress. HEENT: Head exam is unremarkable. LUNGS: No audible rhonchi or wheezes. HEART: Rate and Rhythm are regular. ABDOMEN: Nontender. EXTREMITITES: No edema. Objective - Vital Signs Vital signs: Vital Signs Temp 98.2 F 03/17/23 07:18 Pulse 92 03/17/23 07:18 Resp 18 03/17/23 07:18 BP 147/75 03/17/23 07:18 Pulse Ox 97 03/17/23 07:18 FiO2 Intake & Output 03/16/23 03/17/23 03/17/23 18:59 06:59 18:59 Other: Voiding Method Toilet Toilet # Voids 4 3 - Labs CBC & Chem 7: 03/17/23 05:39 03/17/23 05:39 Labs: Abnormal Lab Results - Last 24 Hours (Table) 03/17/23 03/17/23 Range/Units 05:39 05:39 WBC 4.03 L (4.50-10.00) X 10*3/uL RBC 3.77 L (4.10-5.20) X 10*6/uL Hgb 11.5 L (12.0-15.0) g/dL Hct 34.8 L (37.2-46.3) % Chloride 112 H (96-109) mmol/L Carbon Dioxide 21.0 L (21.6-31.8) mmol/L Assessment and Plan Plan: Assessment: 1. Acute kidney injury secondary to vasomotor nephropathy from hypovolemia improving with IV hydration. GFR back to baseline. 2. Hypernatremia from lack of oral water intake. Improving with hypotonic fluid infusion. 3. Hypercalcemia secondary to volume contraction. Resolved. 4. Metabolic acidosis secondary to acute kidney injury and IV fluids. Stable. Plan: Maintain half-normal saline at 50 cc/hr. Encouraged oral intake, including free water.
[2023-03-17 12:11] VITALS: BP 113/78; PULSE 55; TEMP 98.8
--- NOTE | 2023-03-17 15:31 | P.PN ---
Subjective Progress Note Date: 03/17/23 I am following-up with patient and continues to be doing well. Denies headache, nausea, vomiting, visual disturbance or focal weakness. Per primary is doing drastically better and confusion better. Objective - Vital Signs Vital signs: Vital Signs Temp 98.8 F 03/17/23 11:42 Pulse 55 L 03/17/23 11:42 Resp 18 03/17/23 11:42 BP 113/78 03/17/23 11:42 Pulse Ox 98 03/17/23 11:42 FiO2 Intake & Output 03/16/23 03/17/23 03/17/23 18:59 06:59 18:59 Other: Voiding Method Toilet Toilet # Voids 4 3 - Exam GENERAL: The patient is lying in bed and is not in acute distress. NEUROLOGICAL: Higher mental function: The patient is awake, alert, oriented to self, place and time. She correctly stated the current state and capital of [place]. Patient is following commands. No aphasia and no neglect. Cranial nerves: The pupils are round, equal and reactive to light. Visual musa are full to confrontation throughout. Extraocular movement is intact no nystagmus is noted. Facial sensation is normal to touch throughout. The facial strength is normal throughout. Tongue is midline and moved [id number] without any difficulty. No dysarthria is noted. Motor: The strength is 5 over 5 throughout. Normal tone and bulk. Cerebellum: Normal finger to nose bilaterally. Sensation: Sensation is normal to touch throughout. - Labs CBC & Chem 7: 03/17/23 05:39 03/17/23 05:39 Labs: Abnormal Lab Results - Last 24 Hours (Table) 03/17/23 03/17/23 Range/Units 05:39 05:39 WBC 4.03 L (4.50-10.00) X 10*3/uL RBC 3.77 L (4.10-5.20) X 10*6/uL Hgb 11.5 L (12.0-15.0) g/dL Hct 34.8 L (37.2-46.3) % Chloride 112 H (96-109) mmol/L Carbon Dioxide 21.0 L (21.6-31.8) mmol/L Assessment and Plan Assessment: * Altered mental status, likely due to acute psychosis. Rule out toxic metabolic encephalopathy related to below. Rule out NMDA encephalitis which I feel low on differential since drastic improvement withou any intervention---mentation improved. * Polysubstance abuse, with urine positive for amphetamines, methamphetamines. Patient has history of abusing Meth, as per patient's mother statement. Per Dr. Alonzo doubt if false-positive related to use of dextromethorphan/bupropion. * Possible UTI * Acute kidney injury * History of uterine cancer in 2020 and is in remission Plan: * Psychiatry has seen the patient, diagnosed with unspecified psychotic disorder. 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 Benzodiazepine abuse, rule out catatonia. * Await NMDA antibodies in the serum. * Patient started on Zyprexa by psychiatry. * EEG was reported as abnormal due to background slowing, suggestive of mild encephalopathy. * B12 359, folate 18.3, YURIDIA negative, TSH 1.85, RPR nonreactive * Nephrology is on board. * Patient on ceftriaxone for acute UTI. * Spoke with primary team and they feel patient mentation is drastically better which I agree. We agree it seem low to unlikely NMDA encephalitis because of drastic improvement without intervention. * Recommend the patient to follow-up with neurologist as outpatient within 2-3 weeks. Time with Patient: Less than 30
== END 2023-03-17 13:58 | disposition home or self-care (01) | DRG 751 ==
LOC: EC 20:39 → 4SSUR 03-13 02:05 → 5NMEDONC 03-15 18:32
PROVIDERS: ADMIT Hospitalist; ATTEND Hospitalist
DX: F23 Brief psychotic disorder (principal); N17.0 Acute kidney failure with tubular necrosis; G93.41 Metabolic encephalopathy; F32.A Depression, unspecified; F41.9 Anxiety disorder, unspecified; E83.52 Hypercalcemia; F15.10 Other stimulant abuse, uncomplicated; F13.10 Sedative, hypnotic or anxiolytic abuse, uncomplicated; E86.0 Dehydration; E86.1 Hypovolemia; E87.0 Hyperosmolality and hypernatremia; E87.20 Acidosis, unspecified; N39.0 Urinary tract infection, site not specified; Z90.710 Acquired absence of both cervix and uterus; Z92.21 Personal history of antineoplastic chemotherapy; Z92.3 Personal history of irradiation; Z85.42 Personal history of malignant neoplasm of other parts of uterus; Z11.52 Encounter for screening for COVID-19
CPT/HCPCS: 36415; 70450; 71260; 74177; 80048; 80053; 80143; 80156; 80164; 80179; 80185; 80306; 80320; 81001; 82140; 82607; 82746; 83605; 83690; 83735; 84443; 84703; 85025; 85027; 85610; 85730; 86038; 86140; 86780; 87636; 93005; 95816; 96361; 96365; 96366; 96367; 96375; 99285